=== PATIENT | male | born 1960 | race Caucasian/White ===

== ENCOUNTER 2018-12-08 20:53 | Emergency (ER) | payer SELFPAY, OTHER ==
[2018-12-08] MEDS: ONDANSETRON (ODT) 4 MG TAB ODT (23:16)
[2018-12-08] MEDS: HYDROCODONE/APAP (5/325) TAB PO (23:16)
[2018-12-09] MEDS: KETOROLAC 30 MG INJ IM (00:15)
== END 2018-12-09 00:49 | disposition home or self-care (01) ==
LOC: FTE 12-09 00:49
DX: R51 Headache (principal); R11.2 Nausea with vomiting, unspecified
CPT/HCPCS: 70450; 82962; 96372; 99285-25